=== PATIENT | male | born 2005 | race Hispanic/Latino ===

== ENCOUNTER 2024-02-22 00:59 | Emergency (ER) | payer MEDICAID ==
[2024-02-22 01:43] LABS: BASOPHILS # (AUTO) 0.04 K/uL (0.00-0.20); BASOPHILS % (AUTO) 0.4 % (0.0-5.0); EOSINOPHILS # (AUTO) 0.46 K/uL (0.00-0.70); EOSINOPHILS % (AUTO) 4.6 % (0.0-8.0); HEMATOCRIT 44.1 % (42-54); IMMATURE GRANULOCYTE ABSOLUTE 0.01 K/uL (0-1); LYMPHOCYTES # (AUTO) 3.6 K/uL (1.0-4.8); LYMPHOCYTES % (AUTO) 35.5 % (21.0-51.0); MEAN CORPUSCULAR HEMOGLOBIN 28.5 pg (27.0-33.0); MEAN CORPUSCULAR VOLUME 83.7 fL (80-100); MONOCYTES # (AUTO) 0.8 K/uL (0.1-1.0); MONOCYTES % (AUTO) 7.8 % (3.0-13.0); NEUTROPHILS # (AUTO) 5.2 K/uL (1.8-7.7); NEUTROPHILS % (AUTO) 51.6 % (40.0-77.0); PLATELET COUNT (AUTO) 227 K/uL (130-400); RED BLOOD CELL COUNT(AUTO) 5.27 MIL/uL (4.50-6.20); RED CELL DISTRIBUTION WIDTH 13.2 % (11.0-15.5); WHITE BLOOD COUNT (AUTO) 10.1 K/uL (4.8-10.8)
[2024-02-22 01:54] LABS: CREATININE 1.2 mg/dL (0.5-1.3); POTASSIUM 4.1 mmol/L (3.5-5.1)
[2024-02-22 01:59] LABS: ALBUMIN 3.8 g/dL (3.5-5.0); BILIRUBIN,TOTAL 0.3 mg/dL (0.2-1.0); TOTAL PROTEIN, SERUM 7.7 g/dL (6.0-8.3)
[2024-02-22 02:17] LABS: APPEARANCE,URINE CLEAR (CLEAR); BILIRUBIN,URINE NEGATIVE (NEGATIVE); COLOR,URINE LIGHT-YELLOW (YELLOW); GLUCOSE, URINE (UA) NEGATIVE (NEGATIVE); KETONES,URINE NEGATIVE (NEGATIVE); LEUKOCYTE ESTERASE ,URINE NEGATIVE Leu/uL (NEGATIVE); NITRATE,URINE NEGATIVE (NEGATIVE); OCCULT BLOOD,URINE NEGATIVE (NEGATIVE); PH,URINE 5.5 (5.0-8.0); PROTEIN,URINE NEGATIVE (NEGATIVE); UROBILINOGEN,URINE 0.2 mg/dL (0.2-1.0)
[2024-02-22 02:18] LABS: ADD UA MICROSCOPIC YES
[2024-02-22 02:21] LABS: BACTERIA,URINE RARE /HPF (None Seen); MUCUS,URINE RARE LPF (None Seen); SQUAMOUS EPITHELIAL CELL,UR RARE /HPF (0-2); WBC,URINE 0-1 /HPF (0-1)
[2024-02-22] MEDS: LACTATED RINGERS 1000ML 1,000 ML IV ONE (03:07)
[2024-02-22] MEDS: MAG/ALUM/SIMETH 30 ML UDCUP PO ONE (03:08)
[2024-02-22] MEDS: ONDANSETRON 4MG INJ IVP ONE (03:08)
[2024-02-22] MEDS: PANTOPRAZOLE 40 MG/VIAL IVP ONE (03:08)
[2024-02-22] MEDS: LIDOCAINE HCL 2% VISCOUS 15 ML UDCUP PO ONE (03:08)
[2024-02-22] MEDS: ACETAMINOPHEN 325 MG TAB PO ONE (03:09)
[2024-02-22 03:20] VITALS: BP 118/76; PULSE 74; RESP 16; O2SAT 99
[2024-02-22] MEDS ORDERED: PANT40TA55 PO (03:28)
== END 2024-02-22 03:36 | disposition home or self-care (01) ==
LOC: EDH 00:59
DX: K29.70 Gastritis, unspecified, without bleeding (principal)
CPT/HCPCS: 99284; 96374; 96375; 80053; 83690; 85025; 81001; 36415; 93005; J7120; J2405; S0164; C9113